=== PATIENT | male | born 1990 | race Caucasian/White ===

== ENCOUNTER 2017-05-17 03:48 | Emergency (ER) ==
[2017-05-17 04:03] VITALS: BP 136/86; TEMP 97.1; BMI 36.5
[2017-05-17] MEDS ORDERED: LIDOCAINE HCL 1% SDV SUBCUT STA (04:26)
--- NOTE | 2017-05-17 05:22 | ED.PDOC ---
General ED Provider: Dr. DHAVAL RAND Chief Complaint: Laceration Stated Complaint: Pateint states he accidentally cut the tip of the Left middle finger with a pocket knief, the laceration went all the way to half the nail at the middle portion of the nail. There was bleeding controlled by compression Time Seen by Physician: 04:00 Mode of Arrival: Walk-In Information Source: Patient Exam Limitations: No limitations Seen Within Last 72 Hours for Same Complaint By: ED Nursing and Triage Documentation Reviewed and Agree: Yes Skin Complaint Exam - Laceration/Abrasion/Hand Complaint/Exam Location of Injury: Left, Digit #3 Mechanism of Injury: Laceration Onset/Duration: just prior to arrival Symptoms Are: Still present Initial Severity: Moderate Current Severity: Mild Aggravating: Movement Alleviating: Compression Associated Signs and Symptoms: Denies: Fever, Chills, Erythema, Numbness, Tingling Hand Picture: 1 - laceration finger tip to the mid nail Differential Diagnoses: Laceration Review of Systems - Review Of Systems Constitutional: Reports: No symptoms Eyes: Reports: No symptoms Ears, Nose, Mouth, Throat: Reports: No symptoms Respiratory: Reports: No symptoms Cardiac: Reports: No symptoms GI: Reports: No symptoms : Reports: No symptoms Musculoskeletal: Reports: No symptoms Skin: Reports: Other (finger laceration) Neurological: Reports: No symptoms Endocrine: Reports: No symptoms Hematologic/Lymphatic: Reports: No symptoms All Other Systems: Reviewed and Negative Past Medical History - Past Medical History Previously Healthy: Yes Endocrine: Reports: None Cardiovascular: Reports: Hypertension, Other (arthymia ) Respiratory: Reports: None Hematological: Reports: None Gastrointestinal: Reports: None Genitourinary: Reports: None Neuro/Psych: Reports: None Musculoskeletal: Reports: None Cancer: Reports: None - Surgical History General Surgical History: Reports: None - Family History Family History: Reports: None - Social History Smoking Status: Former smoker, Chews tobacco Hx Substance Use: No Alcohol Screening: Occasionally - Immunizations Tetanus Shot up to Date: Yes Physical Exam - Physical Exam Appearance: Well-appearing, No pain distress, Well-nourished Eyes: CHRISTA, EOMI, Conjunctiva clear ENT: Ears normal, Nose normal, Oropharynx normal Respiratory: Airway patent, Respirations nonlabored Musculoskeletal: Normal strength Skin: Warm, Dry, Normal color Neurological: Sensation intact, Motor intact, Alert, Oriented Psychiatric: Affect appropriate, Mood appropriate Procedures - Laceration/Wound Repair Left middle finger Wound Description: Linear Wound Length (cm): 1.5 Wound Width: 0.1 Wound Depth: 0.2 Wound Explored: Clean Wound Irrigated: Yes Wound Prep: Betadine Anesthesia: Lidocaine Wound Repaired With: Sutures Suture Size and Type: Prolene 5.0 Number of Sutures: 4 (Running ) Sterile Dressing Applied?: Yes Progress: Tolerated well Critical Care Note - Critical Care Note Total Time (mins): 0 Course - Course Orders, Labs, Meds: Orders Category Date Time Status Lidocaine HCl/Pf [Lidocaine HCl 1% Sdv] MEDS 05/17/17 04:26 Discontinued 5 ml SUBCUT ONCE STA Medications Discontinued Medications Generic Name Dose Route Start Last Admin Trade Name Freq PRN Reason Stop Dose Admin Lidocaine HCl 5 ml 05/17/17 04:26 Lidocaine Hcl 1% Sdv SUBCUT 05/17/17 04:27 ONCE STA Vital Signs: Temp Pulse Resp BP Pulse Ox 05/17/17 03:50 97.1 F L 70 18 136/86 97 Departure - Departure Time of Disposition: 05:27 Disposition: HOME SELF-CARE Discharge Problem: Laceration - injury Instructions: Finger Laceration (ED) Condition: Fair Pt referred to PMD for follow-up: Yes Additional Instructions: Follow up with PCP in 7-10 days Report any signs of infection Allergies/Adverse Reactions: Allergies cyclobenzaprine [From Flexeril] Adverse Reaction (Verified 05/17/17 03:56) Palpitations diphenhydramine [From Benadryl] Adverse Reaction (Verified 05/17/17 03:56) Palpitations BEES Adverse Reaction (Uncoded 05/17/17 03:58) THROAT SWELLS WASPS Adverse Reaction (Uncoded 05/17/17 03:58) THROAT SWELLS Home Medications: Ambulatory Orders 1 [No Reported Medications] 05/17/17 Disposition Discussed With: Patient
== END 2017-05-17 05:42 | disposition home or self-care (01) ==
LOC: ED 03:48
DX: S61.313A Laceration without foreign body of left middle finger with damage to nail, initial encounter (principal); W26.0XXA Contact with knife, initial encounter; F17.220 Nicotine dependence, chewing tobacco, uncomplicated
CPT/HCPCS: 99283